=== PATIENT | female | born 1945 | race Caucasian/White ===

== ENCOUNTER → 2023-12-11 15:46 | Outpatient (REF) | payer OTHER, SELFPAY | LOC: HWRAD 15:46 | PROVIDERS: ATTENDING PHYSICIAN Orthopaedic Surgery; FAMILY PHYSICIAN Internal Medicine | DX: M54.50 Low back pain, unspecified (principal) | CPT/HCPCS: 72110 ==

== ENCOUNTER → 2024-11-20 15:32 | Outpatient (REF) | payer OTHER, SELFPAY | LOC: HWWDC 15:32 | PROVIDERS: ATTENDING PHYSICIAN Internal Medicine | DX: Z12.31 Encounter for screening mammogram for malignant neoplasm of breast (principal) | CPT/HCPCS: 77063; 77067 ==

== ENCOUNTER → 2025-03-28 14:16 | Outpatient (REF) | payer OTHER, SELFPAY | LOC: HWRAD 14:16 | PROVIDERS: ATTENDING PHYSICIAN Internal Medicine | DX: M85.852 Other specified disorders of bone density and structure, left thigh (principal); I10 Essential (primary) hypertension; E04.2 Nontoxic multinodular goiter | CPT/HCPCS: 76536; 77080 ==

== ENCOUNTER 2025-08-07 23:57 | Observation (INO) | payer OTHER, SELFPAY ==
[2025-08-07 19:16] VITALS: BP 160/74
[2025-08-07 19:55] LABS: Hematocrit 40.8 % (37.0-47.0); Hemoglobin 12.9 g/dL (12.0-16.0); Mean Corp Hgb Conc. 31.6 g/dL (33.0-37.0); Mean Corpuscular Volume 95.1 fL (81.0-99.0); Nucleated Red Blood Cells % 0 %; Platelet Count 323 10^3/uL (130-400); Red Cell Dist. Width 11.9 % (11.5-14.5)
[2025-08-07 20:15] LABS: ALT (SGPT) 33 U/L (0-35); AST (SGOT) 34 U/L (14-36); Albumin 4.7 g/dl (3.5-5.0); Alkaline Phosphatase 129 U/L (38-126); Blood Urea Nitrogen 33 mg/dl (7-17); Calcium 10.4 mg/dl (8.4-10.2); Carbon Dioxide 28 mmol/L (22-30); Chloride 105 mmol/L (98-107); Glucose 96 mg/dl (70-99); Potassium 4.5 mmol/L (3.5-5.1); Sodium 139 mmol/L (135-145); Total Protein 7.6 g/dl (6.3-8.2); eGFR > 60.00
[2025-08-07 21:20] VITALS: BP 116/48
[2025-08-07 21:21] VITALS: BMI 33.8
[2025-08-07 22:34] VITALS: BP 113/48
[2025-08-07 23:00] VITALS: BP 125/58
--- NOTE | 2025-08-07 23:02 | ED.GENMED ---
History of Present Illness
General
Chief Complaint: Swelling
Source: patient and spouse
Exam Limitations: none
Time Seen by Provider: 08/07/25 22:01
Nursing documentation reviewed up to this point in time: agreed with
History of Present Illness
History of Present Illness:
79-year-old female with history as noted presents to the ER with her for evaluation of leg pain, swelling, redness. Patient had a Mohs procedure on the dorsum of her feet bilaterally�right foot was done on 07/01 left foot was done on 07/[address] Meneses. She says that over the past 2 weeks she has had increased swelling in the legs and has started to develop significant redness and pain. She said she was referred to the ER by green hide inspector for infection requiring IV
antibiotics. She has not yet taken any oral antibiotics. She has not had fevers or chills. She denies any chest pain shortness of breath or any other acute complaints.
Review of Systems
Review of Systems
All Other Systems: ROS reviewed and negative except as documented in HPI and ROS
Constitutional: Denies fever or chills
Respiratory: Denies trouble breathing
Cardiac: Denies chest pain
Musculoskeletal: Reports edema
Skin: Reports other (Redness of the legs)
Phy Exam
Physical Exam
Physical Exam:
General: Awake, alert, oriented x3; no acute distress
Head: Normocephalic, atraumatic
Eyes: Conjunctiva normal
Throat: Airway intact, handling secretions
Neck: Trachea midline, supple without meningismus
Lungs: Breathing comfortably not in distress
Heart: Regular rate
Neuro: Grossly intact
Skin: Patient has 2 shallow-based ulcers on the dorsum of the feet bilaterally; she has significant edema of the legs bilaterally and erythema extending from the dorsum of the feet up to the mid calf bilaterally; area is warm and tender to the
touch, no crepitus and no areas of fluctuance
Extremities: Bilateral leg edema as above; good pulses bilaterally
Scores
Heart Failure Risk
Heart Failure Risk Score: Not Applicable
Heart Score for Chest Pain Patients
STEMI patient?: Not applicable
Withdrawal Assessment of Alcohol
Withdrawal Assessment Completed?: Not applicable
Course
Orders/Labs/Results
Orders:
Orders
08/07/25 19:25
Electrocardiogram (*1) Urgent
Reason for Study: Other
Other Reason for Exam: Possible Sepsis
08/07/25 19:26
EKG- Treatment ONCE
08/07/25 19:27
Peripheral Venous Lwr Ext Bilat US [US Periph Venous LOWER Ext Vargas] Urgent
Comment:
Reason For Exam: swelling b/l
08/07/25 19:46
Complete Blood Count/With Diff Urgent
Comprehensive Metabolic Panel Urgent
08/07/25 21:46
Lactic Acid Urgent
Abnormal Lab Results
08/07/25
19:46
MCHC 31.6 L g/dL
(33.0-37.0)
BUN 33 H mg/dl
(7-17)
Calcium 10.4 H mg/dl
(8.4-10.2)
Alkaline Phosphatase 129 H U/L
(38-126)
08/07/25 19:46
08/07/25 19:46
Vital Signs
Initial and Last Documented VS:
Initial Vital Signs
Temp Pulse Resp BP Pulse Ox
36.6 C 78 16 160/74 98
08/07/25 19:16 08/07/25 19:16 08/07/25 19:16 08/07/25 19:16 08/07/25 19:16
Last Documented Vital Signs
Temp Pulse Resp BP Pulse Ox
36.6 C 78 16 113/48 97
08/07/25 19:16 08/07/25 19:16 08/07/25 19:16 08/07/25 22:34 08/07/25 23:00
MDM/Problems Addressed
Differential Diagnosis Includes:
Cellulitis, DVT, dependent edema/venous stasis changes
MDM/Problems Addressed:
79-year-old female presents with increased swelling, pain, redness in the legs bilaterally 1 month out from Mohs procedure on the legs. Vitals and exam as above. Labs were sent off including a CBC and a CMP which showed no clinically significant
abnormalities. DVT study negative bilaterally. Suspect likely cellulitis. I had a long discussion with patient and she says that her green hide inspector felt that she needed IV antibiotics and does not feel comfortable with trial of oral antibiotics on
an outpatient basis. Will treat with IV Ancef admit for continued treatment given the extent of the infection and associated wounds. Case discussed with hospitalist.
*Radiology
Radiology exam reviewed: radiology read reviewed
*Pulse Oximetry
SaO2: 97
Oxygen Mode of Delivery: Room air
Patient hypoxic: no (97%)
*Critical Care Note
Total Time (30-74mins, 75-104mins- exclusive of procedures): Not Applicable
Data Reviewed
Source: patient and spouse
Patient Management
Discussion with other providers: Hospitalist (Discussed with hospitalist)
Escalation/DeEscalation of care consider admission/obs:
Admission indicated
ED Attending Note
-
Portions of this chart may have been created with voice recognition software.� Occasional wrong word or��sound alike� substitutions may have occurred due to the inherent limitations of voice recognition software.
Discharge Plan
Departure
Discharge Problem:
Cellulitis
Prescriptions:
No Action
levothyroxine 137 mcg Tablet
137 mcg PO DAILY
hydrochlorothiazide 50 mg Tablet
50 mg PO DAILY
Rx Instructions:
since 07/31/25
valacyclovir 1 gram Tablet
1,000 mg PO PRN PRN (Reason: fever blisters)
valsartan 160 mg Tablet
160 mg PO DAILY
gabapentin 300 mg Tablet
300 mg PO TID
calcium carbonate-vitamin D3 [Calcium 600 + D(3)] 600 mg-10 mcg (400 unit) Tablet
1 tab PO DAILY
Referrals:
Kailash Lomas MD [Family Provider, Internal Medicine]
Interventions
Interventions:
*Risk Screen - Suicide Last Done: 08/07/25 19:16
*General Assessment Last Done: 08/07/25 21:21
*Neglect/Abuse Screening Last Done: 08/07/25 19:16
*ED- Fall Risk Assessment Last Done: 08/07/25 21:21
*ED COVID-19 Vaccine History Last Done: 08/07/25 21:21
*ED Influenza Vaccine History Last Done: 08/07/25 21:21
ED- Cardiac Assessment Last Done: 08/07/25 21:21
ED- Pulmonary Assessment Last Done: 08/07/25 21:21
ED-Skin Assessment Last Done: 08/07/25 21:21
Discharge Date and Time
Print Language: [place]
--- NOTE | 2025-08-07 23:12 | HPS.HSE ---
Family Physician
-
Family Physician: Kailash Lomas
Chief Complaint
-
bilateral lower extremity edema, erythema and pain
History of Present Illness
Patient is a 79-year-old female with past medical history significant for hypertension and hypothyroidism who presented to [facility] ED for evaluation of bilateral lower extremity edema, erythema and pain. Patient repots having bilateral MOHS procedures
done to dorsum feet, right foot done on 07/01/25 and left foot done 07/07/[address] Meneses. She states that swelling and redness started approximately 3 weeks ago. She was referred to ED for evaluation by dermatology who felt she would need IV
antibotics. Patients denies any fever, chills, cough, shortness of breath, chest pain, palpitations, nausea, vomiting or diarrhea.
Medical History
Past Medical History
Past Medical History: Reports Other
Additional Past Medical History:
hypertension
hypothyroidism
Past Surgical History: Reports Other
Additional Past Surgical History:
Knee replacement b/l
section x 2
multinodular goiter-subtotal thyroidectomy 1999
Colonoscopy
MILD - Minimimally Invasive Lumbar Discectomy 2022
Social History
Tobacco: Non-smoker
Alcohol: None
Personal:
Living: With Family
Family History
Family History: Not pertinent
Allergies / Home Medications
Allergies reflects when Allergies were last updated in [facility].
Home Medications with original date entered in [facility]
Allergy/Medication List:
Allergies
Allergy/AdvReac Type Severity Reaction Status Date / Time
No Known Allergies Allergy Verified 08/07/25 19:16
Home Medications
calcium 600 mg (as carbonate)-vitamin D3 10 mcg (400 unit) tablet (Calcium 600 + D(3)) 1 tab PO DAILY 08/07/25
gabapentin 300 mg tablet 300 mg PO TID 08/07/25
hydrochlorothiazide 50 mg tablet 50 mg PO DAILY 08/07/25
levothyroxine 137 mcg tablet 137 mcg PO DAILY 08/07/25
valacyclovir 1 gram tablet 1,000 mg PO PRN PRN fever blisters 08/07/25
valsartan 160 mg tablet 160 mg PO DAILY 08/07/25
Review of Systems
-
History Source: Patient
Constitutional: Denies Fever or Chills
EENT: Denies Sore Throat
Respiratory: Denies Cough, Hemoptysis or Trouble Breathing
Cardiac: Denies Chest Pain, Diaphoresis, Palpitations or Syncope
Abdomen/GI: Denies Abdominal Pain, Nausea, Vomiting or Diarrhea
: Reports Incontinence; Denies Dysuria, Frequency or Urgency
Musculoskeletal: Denies Joint Pain
Skin: Reports Other (bilateral lower extremity erythema, edema and pain); Denies Rash
Neurological: Denies Headache, Weakness or Numbness
Endocrine: Denies Polyuria or Polydipsia
Hematologic/Lymphatic: Denies Bleeding
Physical Exam
Vital Signs
Vital Signs
Temp Pulse Resp BP Pulse Ox
98 F 78 16 113/48 97
08/07/25 19:16 08/07/25 19:16 08/07/25 19:16 08/07/25 22:34 08/07/25 23:06
Physical Exam
General: Well Developed, Well Nourished, No Apparent Distress, Comfortable, Conversant and Obese
HEENT: NormoCephalic, Moist mucous membranes, Nose Appears Normal and Ears Appear Normal
Respiratory: Clear and Non Labored Respirations
Cardiac: S1/S2 and Regular Rhythm; No Murmur, Rub or Gallop
GI: Soft, Non Tender, Non Distended and Normal Bowel Sounds
Musculoskeletal: No Clubbing and No Cyanosis
Skin: Warm, IV/Catheter Site and Other (bilateral lower extremity erythema, edema and pain)
Neuro: Awake and AO x 3
Hematologic/Lymphatic: No Lymphadenopathy
Psych: Calm and Intact Judgment/Insight
Laboratory Results
-
08/07/25 19:46
08/07/25 19:46
Laboratory Results
Lactic Acid 1.0 mmol/L (0.7-2.0) 08/07/25 21:46
Total Bilirubin 0.8 mg/dl (0.2-1.3) 08/07/25 19:46
AST 34 U/L (14-36) 08/07/25 19:46
ALT 33 U/L (0-35) 08/07/25 19:46
Alkaline Phosphatase 129 U/L (38-126) H 08/07/25 19:46
Data Reviewed
-
Ultrasound: Report Reviewed by me (BLLE Abby Vasc: 1. No evidence of deep venous thrombosis in the visualized bilateral lower extremities as described above.)
Lab Data: Labs Reviewed by me
Impression/Plan
-
IMPRESSION/PLAN:
#bilateral lower extremity cellulitis
labs unremarkable
BLLE Abby Vasc: 1. No evidence of deep venous thrombosis in the visualized bilateral lower extremities as described above.
EKG: NORMAL SINUS RHYTHM
s/p BL dorsum foot MOHS procedure 07/01/25 and 07/07/25
- Admit to med/surg
- IV Cefazolin
- supportive care
#hypertension
- continue HCTZ and valsartan
#hypothyroidism
- continue levothyroxine
Code status: full code
DVT prophylaxis: lovenox sq
[2025-08-07] MEDS: ROXICODONE 5 MG PO (23:18)
[2025-08-07] MEDS: ANCEF 10 IV (23:20)
--- NOTE | 2025-08-07 23:31 | W.PN.UPDATE ---
Update Note
Progress Note Update
This is an addendum to the H&P written by Annabella Menendez on 08/07/2025. �Patient seen and examined independently with METAL PLATER.
79-year-old female past medical history of hypertension, hypothyroidism, presenting with leg pain, swelling and redness of her legs bilaterally after having Mohs procedure on the dorsum of her feet bilaterally recently. �Symptoms started 3 weeks
ago. �She had right foot Mohs on 07/01 and left foot Mohs on 07/[address] Meneses. �She was referred to emergency room by assembly instructions writer for IV antibiotics. �No fevers or chills.
Vital signs unremarkable.
Labs unremarkable.
Venous ultrasound shows no evidence of DVT.
Patient with bilateral leg cellulitis after recent Mohs procedure. �Cefazolin.
[2025-08-08] VITALS: BP 116/47
[2025-08-08 01:55] VITALS: BP 122/54; BMI 32.5
--- NOTE | 2025-08-08 01:55 | PTCARENOTE ---
Patient arrived from the ED via stretcher. Pulled over onto the bed. Patient unable to walk due to B/L leg pain. Pt also complains of chronic lower back, and neck pain. AAOx3. VSS. B/L legs edematous, red, and warm to the touch. Two biopsy sites
from MOH's procedure showing no drainage. New bandages applied. Patient updated on plan of care and abx. Call egan is within reach.
[2025-08-08] MEDS: TYLENOL 650 MG PO ×2 (02:01→19:48)
[2025-08-08] MEDS: SYNTHROID 137 MCG PO (05:51)
[2025-08-08 07:47] VITALS: BP 115/48
[2025-08-08] MEDS: ANCEF 10 IV ×3 (08:05→23:39)
[2025-08-08] MEDS: ORETIC 50 MG PO (08:05)
[2025-08-08] MEDS: NEURONTIN 300 MG PO ×3 (08:06→21:15)
[2025-08-08] MEDS: OSCAL 500 + D 500 MG PO (08:06)
[2025-08-08] MEDS: DIOVAN 160 MG PO (08:06)
--- NOTE | 2025-08-08 08:18 | W.PN.HOSP.TC ---
Today's Communication/Plan
-
see plan
Assessment / Plan
Assessment / Plan
Gen: NAD, AAOx3.
Eyes: EOMI, PERRLA, no scleral icterus.
Neck: supple.
CV: RRR, +S1/S2, no m/r/g.
Resp: CTAB, no rales, wheezes, or rhonchi.
Abd: +BS, soft, NT, ND
Skin: B/L LEs with 1+ edema and mild erythema. Dorsal aspects of both feet with band-aids over recent MOHS procedure areas.
Neuro: CN 2-12 intact, non-focal.
Psych: Normal mood and affect.
B/L LE U/S: No evidence of deep venous thrombosis in the visualized bilateral lower extremities as described above.
Possible B/L LE cellulitis:
-afebrile, no leukocytosis
-possibly simply venous stasis dermatitis
-s/p B/L dorsum foot MOHS procedure 07/01/25 and 07/07/25
-cont IV Ancef
-compression/elevation of LEs
Other problems:
Essential HTN: cont HCTZ/valsartan
Hypothyroidism: cont Levoxyl
Obesity due to excess calories
FULL/Lovenox
Dispo: Cont IV abx
Anticipated Discharge: Within 24 hours
Subjective/Interval History
-
Date of Service: August 08, 2025
No new complaints.
Objective Data
-
Labs:
Laboratory Results
08/08/25
08:11
WBC Pending
Hgb Pending
Hct Pending
Plt Count Pending
Vital Signs:
Vital Signs
Temp Pulse Resp BP Pulse Ox
97.5 F 67 14 115/48 98
08/08/25 07:47 08/08/25 08:05 08/08/25 07:47 08/08/25 08:05 08/08/25 07:47
I&O
08/07/25 08/08/25 08/09/25
06:59 06:59 06:59
Intake Total 480 / 480
Output Total 450 / 450
Balance 30 / 30
[2025-08-08 08:57] LABS: Hematocrit 34.0 % (37.0-47.0); Hemoglobin 11.2 g/dL (12.0-16.0); Mean Corp Hgb Conc. 32.9 g/dL (33.0-37.0); Mean Corpuscular Volume 92.4 fL (81.0-99.0); Platelet Count 283 10^3/uL (130-400); Red Cell Dist. Width 12.0 % (11.5-14.5)
[2025-08-08 15:27] VITALS: BP 119/55
[2025-08-08] MEDS: LOVENOX 40 MG SC (17:20)
--- NOTE | 2025-08-08 17:54 | CM ---
IA completed. STRAUSS provided and placed on chart. Independent in ADLs and IADLs. Lives in 2 story home with with2 steps with rales at the entrance. 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
agency name No hx of SNF, home O2. DME: uses rolling walker, has cane but doesn't use; toilet rales, built-in shower chair. NO insecurities identified. Confirmed PCP, Rx, insurance and drug plan.
Pt on IV ABX for bilateral lower exgtremity cellulitis. Anticipates being discharge tomorrow. She is interested to know if status has changed from OBS to Inpatient.
PCP: Aman Lomas
Rx: ESTUARDO/ alexis
PLan: DC to home no needs
[2025-08-08 23:26] VITALS: BP 111/58
[2025-08-09] MEDS: SYNTHROID 137 MCG PO (05:36)
[2025-08-09 07:40] VITALS: BP 121/49
[2025-08-09] MEDS: OSCAL 500 + D 500 MG PO (08:14)
[2025-08-09] MEDS: TYLENOL 650 MG PO (08:14)
[2025-08-09] MEDS: NEURONTIN 300 MG PO (08:14)
[2025-08-09] MEDS: ORETIC 50 MG PO (08:14)
[2025-08-09] MEDS: ANCEF 10 IV (08:14)
[2025-08-09] MEDS: DIOVAN 160 MG PO (08:14)
--- NOTE | 2025-08-09 08:23 | W.PN.HOSP.TC ---
Today's Communication/Plan
-
d/c
Assessment / Plan
Assessment / Plan
Gen: NAD, AAOx3.
Eyes: EOMI, PERRLA, no scleral icterus.
Neck: supple.
CV: remains RRR, +S1/S2, no m/r/g.
Resp: remains CTAB, no rales, wheezes, or rhonchi.
Abd: +BS, soft, NT, ND
Skin: B/L LEs with trace-1+ edema and mild erythema (improved from yesterday).
Neuro: CN 2-12 intact, non-focal.
Psych: Normal mood and affect.
B/L LE U/S: No evidence of deep venous thrombosis in the visualized bilateral lower extremities as described above.
Possible B/L LE cellulitis:
-afebrile, no leukocytosis
-possibly simply venous stasis dermatitis
-s/p B/L dorsum foot MOHS procedure 07/01/25 and 07/07/25
-has been on IV Ancef, d/c on 7 further days Keflex
-compression/elevation of LEs
Other problems:
Essential HTN: cont HCTZ/valsartan
Hypothyroidism: cont Levoxyl
Obesity due to excess calories
FULL/Lovenox
Medically cleared for d/c, case management aware.
Total time spent on d/c = 31 min. This included today's physical exam, progress note, review of laboratory and diagnostic data, preparation of discharge documents and prescriptions, and discussions about the pt's hospital course and discharge plan
with the patient and other nuclear medical tech involved in the patient's care.
Anticipated Discharge: Today
Subjective/Interval History
-
Date of Service: August 09, 2025
No new complaints.
Objective Data
-
Vital Signs:
Vital Signs
Temp Pulse Resp BP Pulse Ox
98.0 F 70 18 111/58 95
08/08/25 23:26 08/08/25 23:26 08/08/25 23:26 08/08/25 23:26 08/08/25 23:26
I&O
08/08/25 08/09/25 08/10/25
06:59 06:59 06:59
Intake Total 480 / 480 1140 / 1140
Output Total 450 / 450
Balance 1140 / 1140
--- NOTE | 2025-08-09 10:39 | CM ---
Chart reviewed. Patient will d/c home today
Patient stated she isn't interested in any home care services
Confirmed spouse will transport home
Plan: Home, no needs
== END 2025-08-09 12:56 | disposition home or self-care (01) ==
LOC: 4 EAST ACU 23:57
PROVIDERS: Emergency Medicine; Nurse Practitioner Family; ADMITTING PHYSICIAN Hospitalist; ATTENDING PHYSICIAN Internal Medicine; EMERGENCY PHYSICIAN Emergency Medicine; FAMILY PHYSICIAN Internal Medicine
DX: L03.116 Cellulitis of left lower limb (principal); L03.115 Cellulitis of right lower limb; I10 Essential (primary) hypertension; E03.9 Hypothyroidism, unspecified; E66.09 Other obesity due to excess calories; Z68.32 Body mass index [BMI] 32.0-32.9, adult; Z79.890 Hormone replacement therapy; Z79.899 Other long term (current) drug therapy
CPT/HCPCS: 80053; 83605; 85025; 85027; 93005; 93970; 96374; 99285; G0378